=== PATIENT | male | born 1945 | race Caucasian/White ===

== ENCOUNTER 2016-08-15 07:11 | Emergency (ER) | payer MEDICARE, MEDICAID, OTHER ==
[~2016-08-15] VITALS: Ht 190.5 cm; Wt 72.7 kg
[~2016-08-15 07:11] MED LIST: 00186-0370-20 IH; ASPIRIN 81M81 MG/TA2 PO; BETAPACE 80MG80 MG PO; DITROPAN 5MG TAB5 MG PO; ELIQUIS 5MG PO; FISH OIL 500 M1 EAC1 PO; FLOMAX 0.40.4 MG/CAP PO; LIPITOR 40MG TA40 MG PO; LUBRICATING OPH OU; MOBIC15 MG PO; NICODERM C14 MG/PATC TD; NICORETTE2 M1 PO; PRILOSEC 20MG20 MG PO; PROAIR HFA0.09 MG/AC IH; SOTALOL PO; ULTRAM 50MG TAB50 MG PO; VIAGRA100 M1 PO; ZESTRIL 5MG5 MG PO; ZOLOFT 100MG100 MG PO
[2016-08-15 07:14] VITALS: TEMP 98.3
[2016-08-15] MEDS ORDERED: TOPROL XL 25MG25 MG PO (07:53)
[2016-08-15] MEDS ORDERED: COUMADIN 2MG2 MG/TAB PO (07:54)
[2016-08-15] MEDS ORDERED: LIPITOR 40MG TA40 MG PO (07:55)
[2016-08-15] MEDS ORDERED: PROTONIX20 MG PO (07:57)
[2016-08-15 08:12] LABS: MEAN CELL VOLUME 90 fl (80.0-100.0); MEAN CORPUSCULAR HGB CONC 32 g/dl (33.0-37.0); MEAN PLATELET VOLUME 9.9 fl (7.4-10.4); PLATELET COUNT 143 K/mm3 (130-400); RED BLOOD COUNT 2.28 M/mm3 (4.20-5.60); REDCELL DISTRIBUTION WIDTH-CV 14.1 % (11.5-14.5); WHITE BLOOD COUNT 5.4 K/mm3 (4.8-10.8)
[2016-08-15 08:15] LABS: HEMOGLOBIN 6.5 g/dl (13.5-18.0); MEAN CORPUSCULAR HEMOGLOBIN 29 pg (27.0-31.0)
[2016-08-15 08:16] LABS: HEMATOCRIT 20.5 % (42.0-52.0)
[2016-08-15 08:17] LABS: ADD PATHOLOGY DIFF REVIEW NO
[2016-08-15] MEDS ORDERED: NITROSTAT0.4 MG/TAB SL (08:19)
[2016-08-15] MEDS ORDERED: XALATAN EYE DROPS OD (08:20)
[2016-08-15 08:22] LABS: INR 1.2 (0.8-3.0)
[2016-08-15] MEDS ORDERED: 00186-0372-20 IH (08:26)
[2016-08-15] MEDS ORDERED: ROXICODONE 55 MG/TAB PO (08:26)
[2016-08-15 08:27] LABS: ADJUSTED CALCIUM 8.8 mg/dL (8.4-10.2); ALBUMIN 2.7 gm/dL (3.5-5.0); BILIRUBIN,TOTAL 0.6 mg/dL (0.0-1.0); CALCIUM 7.8 mg/dL (8.4-10.2); TOTAL PROTEIN 6.5 gm/dL (6.4-8.2)
[2016-08-15 08:30] LABS: CREATININE, serum 5.4 mg/dL (0.66-1.25)
[2016-08-15 09:06] VITALS: BP 147/82; PULSE 60
[2016-08-15 09:14] LABS: BAND 6 % (0-10); METAMYELOCYTE 1 % (0-0); NEUTROPHILS 84 % (42.0-75.2); TOTAL CELLS COUNTED 100
[2016-08-15 09:16] LABS: ANISOCYTOSIS 1+; HYPOCHROMIA 2+; OVALOCYTES 1+
== END 2016-08-15 09:05 | disposition short-term general hospital (02) ==
LOC: COL.ER 07:11
PROVIDERS: Emergency Medicine
DX: S06.5X0A Traumatic subdural hemorrhage without loss of consciousness, initial encounter (principal); S06.6X0A Traumatic subarachnoid hemorrhage without loss of consciousness, initial encounter; S50.01XA Contusion of right elbow, initial encounter; S50.311A Abrasion of right elbow, initial encounter; D64.9 Anemia, unspecified; W01.198A Fall on same level from slipping, tripping and stumbling with subsequent striking against other object, initial encounter; Y92.129 Unspecified place in nursing home as the place of occurrence of the external cause; Z23 Encounter for immunization; I48.91 Unspecified atrial fibrillation; Z79.01 Long term (current) use of anticoagulants; Z79.82 Long term (current) use of aspirin; I10 Essential (primary) hypertension; J44.9 Chronic obstructive pulmonary disease, unspecified; I71.4 Abdominal aortic aneurysm, without rupture; F17.200 Nicotine dependence, unspecified, uncomplicated; R40.2412 Glasgow coma scale score 13-15, at arrival to emergency department; S00.83XA Contusion of other part of head, initial encounter; S00.81XA Abrasion of other part of head, initial encounter
CPT/HCPCS: J3430

== ENCOUNTER → 2016-08-29 | Outpatient (CLI) | payer MEDICARE, MEDICAID ==
[~2016-08-29] MED LIST changes: +00186-0372-20 IH; +AMOXICILLIN/CLA1 TA1 PO; +CEPHALEXIN500 M1 PO; +COUMADIN 2MG2 MG/TAB PO; +FLAGYL500 MG PO; +IMDUR 60MG60 MG/TAB PO; +ISOSORBIDE MON120 MG PO; +KEPPRA 500MG500 MG PO; +LOPRESSOR 225 MG/TAB PO; +NITROSTAT0.4 MG/TAB SL; +NORCO 325 MG-51 TAB PO; +PROTONIX20 MG PO; +ROXICODONE 55 MG/TAB PO; +SEN-O-TABS8.6 MG PO; +TOPROL XL 25MG25 MG PO; +TYLENOL 325MG325 MG PO; +TYLENOL W/COD1 UDTAB PO; +XALATAN EYE DROPS OD; +ZOFRAN 4MG T4 MG/TAB PO
[2016-08-29 19:29] LABS: BASO % 0.2 % (0.0-2.0); EOS # 0.1 (0.0-0.7); EOS % 1.5 % (0-4.0); GRAN # 4.4 (1.4-6.5); GRAN % 84.1 % (42.2-75.2); LYMPH # 0.4 (1.2-3.4); LYMPH % 8.2 % (20.0-51.0); MEAN CELL VOLUME 88 fl (80.0-100.0); MEAN CORPUSCULAR HGB CONC 32 g/dl (33.0-37.0); MEAN PLATELET VOLUME 11.2 fl (7.4-10.4); MONO # 0.3 (0.1-0.6); MONO % 5.2 % (1.7-9.3); PLATELET COUNT 137 K/mm3 (130-400); RED BLOOD COUNT 2.84 M/mm3 (4.20-5.60); REDCELL DISTRIBUTION WIDTH-CV 13.6 % (11.5-14.5); WHITE BLOOD COUNT 5.2 K/mm3 (4.8-10.8)
[2016-08-29 19:39] LABS: HEMATOCRIT 25.1 % (42.0-52.0); MEAN CORPUSCULAR HEMOGLOBIN 28 pg (27.0-31.0)
[2016-08-29 20:03] LABS: CALCIUM 7.6 mg/dL (8.4-10.2); POTASSIUM 3.4 mmol/L (3.4-5.0)
[2016-08-29 20:07] LABS: CREATININE, serum 6.37 mg/dL (0.66-1.25)
== END ==
LOC: ZCOL.LAB 17:28
PROVIDERS: Internal Medicine
DX: E11.9 Type 2 diabetes mellitus without complications (principal); D72.829 Elevated white blood cell count, unspecified

== ENCOUNTER 2016-08-31 19:15 | Observation (INO) | payer MEDICARE, MEDICAID ==
[~2016-08-31] VITALS: Ht 190.5 cm; Wt 71.0 kg
[2016-08-31] VITALS (59 sets, daily range): BP systolic 152; BP diastolic 84; PULSE 65; TEMP 97.7; O2SAT 95–100
[~2016-08-31 19:15] MED LIST changes: -AMOXICILLIN/CLA1 TA1 PO; -CEPHALEXIN500 M1 PO; -FLAGYL500 MG PO; -IMDUR 60MG60 MG/TAB PO; -ISOSORBIDE MON120 MG PO; -KEPPRA 500MG500 MG PO; -LOPRESSOR 225 MG/TAB PO; -NORCO 325 MG-51 TAB PO; -SEN-O-TABS8.6 MG PO; -TYLENOL 325MG325 MG PO; -TYLENOL W/COD1 UDTAB PO; -ZOFRAN 4MG T4 MG/TAB PO
[2016-08-31] MEDS ORDERED: KEPPRA 500MG500 MG PO (19:55)
[2016-08-31 20:20] LABS: BASO % 0.2 % (0.0-2.0); EOS # 0.1 (0.0-0.7); EOS % 2.7 % (0-4.0); GRAN # 3.4 (1.4-6.5); GRAN % 75.5 % (42.2-75.2); LYMPH # 0.5 (1.2-3.4); LYMPH % 11.8 % (20.0-51.0); MEAN CELL VOLUME 87 fl (80.0-100.0); MEAN CORPUSCULAR HGB CONC 32 g/dl (33.0-37.0); MEAN PLATELET VOLUME 10.6 fl (7.4-10.4); MONO # 0.4 (0.1-0.6); MONO % 8.5 % (1.7-9.3); PLATELET COUNT 138 K/mm3 (130-400); RED BLOOD COUNT 2.96 M/mm3 (4.20-5.60); REDCELL DISTRIBUTION WIDTH-CV 13.8 % (11.5-14.5); WHITE BLOOD COUNT 4.5 K/mm3 (4.8-10.8)
[2016-08-31 20:21] LABS: HEMATOCRIT 25.6 % (42.0-52.0); HEMOGLOBIN 8.3 g/dl (13.5-18.0); MEAN CORPUSCULAR HEMOGLOBIN 28 pg (27.0-31.0)
[2016-08-31 20:27] LABS: PROTHROMBIN TIME 10.9 SECONDS (9.7-12.8)
[2016-08-31 20:29] LABS: PARTIAL THROMBOPLASTIN TIME 33.8 SECONDS (26.0-37.0)
[2016-08-31 20:30] LABS: CALCIUM 8.1 mg/dL (8.4-10.2); CREATININE, serum 2.33 mg/dL (0.66-1.25); POTASSIUM 3.3 mmol/L (3.4-5.0)
[2016-09-01] VITALS (551 sets, daily range): BP systolic 117–152; BP diastolic 58–86; PULSE 49–56; TEMP 98–98.4; O2SAT 92–100
[2016-09-01 06:27] LABS: EOS # 0.1 (0.0-0.7); EOS % 2.8 % (0-4.0); GRAN # 2.4 (1.4-6.5); GRAN % 67.9 % (42.2-75.2); LYMPH # 0.6 (1.2-3.4); LYMPH % 17.5 % (20.0-51.0); MEAN CELL VOLUME 88 fl (80.0-100.0); MEAN CORPUSCULAR HGB CONC 33 g/dl (33.0-37.0); MEAN PLATELET VOLUME 11.1 fl (7.4-10.4); MONO # 0.4 (0.1-0.6); MONO % 10.4 % (1.7-9.3); PLATELET COUNT 118 K/mm3 (130-400); RED BLOOD COUNT 2.62 M/mm3 (4.20-5.60); WHITE BLOOD COUNT 3.6 K/mm3 (4.8-10.8)
[2016-09-01 06:28] LABS: HEMOGLOBIN 7.5 g/dl (13.5-18.0); MEAN CORPUSCULAR HEMOGLOBIN 29 pg (27.0-31.0)
[2016-09-01 06:33] LABS: PH 8 (5-8); SQUAMOUS EPITHELIAL None Seen /hpf; URINE APPEARANCE Clear; URINE BACTERIA Rare /hpf; URINE BILIRUBIN Negative (NEGATIVE); URINE BLOOD 2+ (NEGATIVE); URINE COLOR Yellow; URINE GLUCOSE Negative (NEGATIVE); URINE KETONE Negative (NEGATIVE); URINE RBC 0-2 /hpf; URINE UROBILINOGEN Negative (NEGATIVE)
[2016-09-01 06:36] LABS: ALBUMIN 2.6 gm/dL (3.5-5.0); CALCIUM 7.7 mg/dL (8.4-10.2); CREATININE, serum 3.16 mg/dL (0.66-1.25); POTASSIUM 3.3 mmol/L (3.4-5.0)
[2016-09-01 06:52] LABS: PHOSPHOROUS 3.2 mg/dL (2.5-4.5)
[2016-09-01] MEDS ORDERED: FLOMAX 0.40.4 MG/CAP PO (13:23)
[2016-09-01] MEDS ORDERED: TYLENOL W/COD1 UDTAB PO (14:31)
[2016-09-01] MEDS ORDERED: CEPHALEXIN500 M1 PO (14:51)
== END 2016-09-01 15:47 ==
LOC: COL.ER 19:15 → ICU 22:00
PROVIDERS: Emergency Medicine; Internal Medicine
DX: S06.5X0A Traumatic subdural hemorrhage without loss of consciousness, initial encounter (principal); I25.2 Old myocardial infarction; I25.10 Atherosclerotic heart disease of native coronary artery without angina pectoris; J44.9 Chronic obstructive pulmonary disease, unspecified; C34.90 Malignant neoplasm of unspecified part of unspecified bronchus or lung; N18.6 End stage renal disease; E78.5 Hyperlipidemia, unspecified; J43.9 Emphysema, unspecified; Z99.2 Dependence on renal dialysis; Z95.5 Presence of coronary angioplasty implant and graft; Z87.891 Personal history of nicotine dependence; Z86.718 Personal history of other venous thrombosis and embolism; Z83.49 Family history of other endocrine, nutritional and metabolic diseases
CPT/HCPCS: G0378; J0696

== ENCOUNTER 2016-09-04 10:42 | Inpatient (IN) | payer MEDICARE, MEDICAID ==
[~2016-09-04] VITALS: Ht 193 cm; Wt 72.7 kg
[~2016-09-04 10:42] MED LIST changes: +CEPHALEXIN500 M1 PO; +KEPPRA 500MG500 MG PO; +TYLENOL W/COD1 UDTAB PO
[2016-09-04 12:00] LABS: BASO % 0.3 % (0.0-2.0); EOS # 0.1 (0.0-0.7); EOS % 1.9 % (0-4.0); GRAN # 2.9 (1.4-6.5); LYMPH # 0.3 (1.2-3.4); LYMPH % 9.4 % (20.0-51.0); MEAN CELL VOLUME 88 fl (80.0-100.0); MEAN CORPUSCULAR HGB CONC 32 g/dl (33.0-37.0); MEAN PLATELET VOLUME 11.1 fl (7.4-10.4); MONO # 0.2 (0.1-0.6); MONO % 6.7 % (1.7-9.3); PLATELET COUNT 112 K/mm3 (130-400); REDCELL DISTRIBUTION WIDTH-CV 13.9 % (11.5-14.5); WHITE BLOOD COUNT 3.6 K/mm3 (4.8-10.8)
[2016-09-04 12:02] LABS: ADJUSTED CALCIUM 8.7 mg/dL (8.4-10.2); ALBUMIN 2.6 gm/dL (3.5-5.0); BILIRUBIN,TOTAL 0.5 mg/dL (0.0-1.0); CALCIUM 7.6 mg/dL (8.4-10.2); MAGNESIUM 1.4 mg/dL (1.6-2.3); PHOSPHOROUS 3.5 mg/dL (2.5-4.5); POTASSIUM 3.4 mmol/L (3.4-5.0); TOTAL PROTEIN 6.4 gm/dL (6.4-8.2)
[2016-09-04 12:04] LABS: HEMATOCRIT 22.1 % (42.0-52.0); HEMOGLOBIN 7.1 g/dl (13.5-18.0); MEAN CORPUSCULAR HEMOGLOBIN 28 pg (27.0-31.0)
[2016-09-04 12:13] LABS: CREATININE, serum 4.46 mg/dL (0.66-1.25)
[2016-09-04 12:16] LABS: INR 1.1 (0.8-3.0); PROTHROMBIN TIME 11.9 SECONDS (9.7-12.8)
[2016-09-04 12:26] LABS: TROPONIN-I 0.035 ng/mL (0.000-0.034)
[2016-09-04] MEDS ORDERED: SEN-O-TABS8.6 MG PO (13:03)
[2016-09-04] MEDS ORDERED: FISH OIL 500 M1 EAC1 PO (13:10)
[2016-09-04] MEDS ORDERED: TYLENOL 325MG325 MG PO (13:19)
[2016-09-04 17:30] VITALS: BP 168/79; PULSE 49; TEMP 97.9
[2016-09-04 21:19] VITALS: BP 150/62; PULSE 47; TEMP 98
[2016-09-04 23:43] VITALS: BP 132/58; PULSE 51; TEMP 98.1
[2016-09-05] VITALS (11 sets, daily range): BP systolic 99–166; BP diastolic 48–74; PULSE 50–72; TEMP 97.3–98.4
[2016-09-05 06:54] LABS: TROPONIN-I 0.038 ng/mL (0.000-0.034)
[2016-09-05 12:26] LABS: MEAN CELL VOLUME 88 fl (80.0-100.0); MEAN CORPUSCULAR HGB CONC 32 g/dl (33.0-37.0); MEAN PLATELET VOLUME 10.9 fl (7.4-10.4); PLATELET COUNT 154 K/mm3 (130-400); RED BLOOD COUNT 2.56 M/mm3 (4.20-5.60); REDCELL DISTRIBUTION WIDTH-CV 13.9 % (11.5-14.5); WHITE BLOOD COUNT 4.1 K/mm3 (4.8-10.8)
[2016-09-05 12:28] LABS: HEMATOCRIT 22.6 % (42.0-52.0); HEMOGLOBIN 7.2 g/dl (13.5-18.0); MEAN CORPUSCULAR HEMOGLOBIN 28 pg (27.0-31.0)
[2016-09-05 12:33] LABS: ALBUMIN 2.5 gm/dL (3.5-5.0); CALCIUM 7.8 mg/dL (8.4-10.2); CREATININE, serum 3.3 mg/dL (0.66-1.25); PHOSPHOROUS 3.2 mg/dL (2.5-4.5); POTASSIUM 3.6 mmol/L (3.4-5.0)
[2016-09-06] VITALS (14 sets, daily range): BP systolic 126–165; BP diastolic 46–87; PULSE 48–99; TEMP 97.7–98.3
[2016-09-06 06:36] LABS: MEAN CELL VOLUME 88 fl (80.0-100.0); MEAN CORPUSCULAR HGB CONC 32 g/dl (33.0-37.0); MEAN PLATELET VOLUME 9.5 fl (7.4-10.4); PLATELET COUNT 113 K/mm3 (130-400); RED BLOOD COUNT 2.43 M/mm3 (4.20-5.60); WHITE BLOOD COUNT 4.1 K/mm3 (4.8-10.8)
[2016-09-06 06:48] LABS: HEMATOCRIT 21.3 % (42.0-52.0); HEMOGLOBIN 6.8 g/dl (13.5-18.0); MEAN CORPUSCULAR HEMOGLOBIN 28 pg (27.0-31.0)
[2016-09-06 07:02] LABS: ALBUMIN 2.5 gm/dL (3.5-5.0); CALCIUM 7.6 mg/dL (8.4-10.2); PHOSPHOROUS 3.9 mg/dL (2.5-4.5); POTASSIUM 3.5 mmol/L (3.4-5.0)
[2016-09-06 07:06] LABS: CREATININE, serum 4.2 mg/dL (0.66-1.25)
[2016-09-06 12:19] LABS: RETIC % 0.9 % (0.5-3.52)
[2016-09-07 00:03] VITALS: BP 143/72; PULSE 47; TEMP 98.2
[2016-09-07 03:32] VITALS: BP 150/52; PULSE 47; TEMP 97.9
[2016-09-07 06:36] LABS: MEAN CELL VOLUME 87 fl (80.0-100.0); MEAN CORPUSCULAR HGB CONC 33 g/dl (33.0-37.0); PLATELET COUNT 123 K/mm3 (130-400); RED BLOOD COUNT 3.26 M/mm3 (4.20-5.60); WHITE BLOOD COUNT 5.1 K/mm3 (4.8-10.8)
[2016-09-07 06:46] LABS: ALBUMIN 2.7 gm/dL (3.5-5.0); CALCIUM 7.9 mg/dL (8.4-10.2); CREATININE, serum 3.24 mg/dL (0.66-1.25); PHOSPHOROUS 3.7 mg/dL (2.5-4.5); POTASSIUM 3.3 mmol/L (3.4-5.0)
[2016-09-07 06:50] LABS: HEMATOCRIT 28.5 % (42.0-52.0); HEMOGLOBIN 9.3 g/dl (13.5-18.0); MEAN CORPUSCULAR HEMOGLOBIN 29 pg (27.0-31.0)
[2016-09-07 08:19] VITALS: BP 125/62; PULSE 50; TEMP 98.4
[2016-09-07 11:08] VITALS: BP 148/73; PULSE 51
[2016-09-07] MEDS ORDERED: IMDUR 60MG60 MG/TAB PO (13:04)
== END 2016-09-07 14:00 | disposition home or self-care (01) | DRG 302 ==
LOC: COL.ER 10:42 → MEDICAL 13:25
PROVIDERS: Emergency Medicine; Internal Medicine Nephrology
PROC: 5A1D60Z (ICD-10-PCS; principal; 2016-09-04)
DX: I25.110 Atherosclerotic heart disease of native coronary artery with unstable angina pectoris (principal); N18.6 End stage renal disease; E44.0 Moderate protein-calorie malnutrition; Z68.1 Body mass index [BMI] 19.9 or less, adult; I13.2 Hypertensive heart and chronic kidney disease with heart failure and with stage 5 chronic kidney disease, or end stage renal disease; D61.818 Other pancytopenia; Z99.2 Dependence on renal dialysis; J44.9 Chronic obstructive pulmonary disease, unspecified; Z95.5 Presence of coronary angioplasty implant and graft; Z95.820 Peripheral vascular angioplasty status with implants and grafts; I34.0 Nonrheumatic mitral (valve) insufficiency; E83.42 Hypomagnesemia; D63.1 Anemia in chronic kidney disease; F17.210 Nicotine dependence, cigarettes, uncomplicated
CPT/HCPCS: A9502; G0378; J0696; J0882; J2785; J2916; J7030; P9016

== ENCOUNTER 2016-09-15 22:58 | Emergency (ER) | payer MEDICARE, MEDICAID ==
[~2016-09-15] VITALS: Ht 188 cm; Wt 63.6 kg
[~2016-09-15 22:58] MED LIST changes: +IMDUR 60MG60 MG/TAB PO; +SEN-O-TABS8.6 MG PO; +TYLENOL 325MG325 MG PO
[2016-09-15 23:03] VITALS: TEMP 97.7
[2016-09-16 00:24] VITALS: BP 154/87; PULSE 83
== END 2016-09-16 00:24 | disposition home or self-care (01) ==
LOC: COL.ER 22:58
DX: S40.812A Abrasion of left upper arm, initial encounter (principal); S51.012A Laceration without foreign body of left elbow, initial encounter; S80.812A Abrasion, left lower leg, initial encounter; S70.312A Abrasion, left thigh, initial encounter; W01.10XA Fall on same level from slipping, tripping and stumbling with subsequent striking against unspecified object, initial encounter; Y92.828 Other wilderness area as the place of occurrence of the external cause; S06.5X0D Traumatic subdural hemorrhage without loss of consciousness, subsequent encounter; X58.XXXD Exposure to other specified factors, subsequent encounter; I10 Essential (primary) hypertension; E78.5 Hyperlipidemia, unspecified
CPT/HCPCS: J3010

== ENCOUNTER 2016-09-16 12:53 | Inpatient (IN) | payer MEDICARE, MEDICAID ==
[~2016-09-16] VITALS: Ht 190.5 cm; Wt 68.2 kg
[2016-09-16 13:20] LABS: BASO % 0.3 % (0.0-2.0); EOS # 0.1 (0.0-0.7); EOS % 1.4 % (0-4.0); GRAN # 2.6 (1.4-6.5); LYMPH # 0.5 (1.2-3.4); LYMPH % 13.6 % (20.0-51.0); MEAN CELL VOLUME 88 fl (80.0-100.0); MEAN CORPUSCULAR HGB CONC 32 g/dl (33.0-37.0); MEAN PLATELET VOLUME 9.6 fl (7.4-10.4); MONO # 0.4 (0.1-0.6); MONO % 10.1 % (1.7-9.3); PLATELET COUNT 93 K/mm3 (130-400); RED BLOOD COUNT 3.53 M/mm3 (4.20-5.60); REDCELL DISTRIBUTION WIDTH-CV 14.7 % (11.5-14.5); WHITE BLOOD COUNT 3.5 K/mm3 (4.8-10.8)
[2016-09-16 13:21] LABS: HEMATOCRIT 30.9 % (42.0-52.0); HEMOGLOBIN 9.9 g/dl (13.5-18.0); MEAN CORPUSCULAR HEMOGLOBIN 28 pg (27.0-31.0)
[2016-09-16 13:25] LABS: PROTHROMBIN TIME 11.6 SECONDS (9.7-12.8)
[2016-09-16 13:28] LABS: PARTIAL THROMBOPLASTIN TIME 31.3 SECONDS (26.0-37.0)
[2016-09-16 13:30] LABS: ADJUSTED CALCIUM 8.8 mg/dL (8.4-10.2); ALBUMIN 3.1 gm/dL (3.5-5.0); BILIRUBIN,TOTAL 0.7 mg/dL (0.0-1.0); CALCIUM 8.1 mg/dL (8.4-10.2); POTASSIUM 3.6 mmol/L (3.4-5.0); TOTAL PROTEIN 7.3 gm/dL (6.4-8.2)
[2016-09-16 13:44] LABS: CREATININE, serum 4.45 mg/dL (0.66-1.25)
[2016-09-16 13:45] LABS: TROPONIN-I 0.062 ng/mL (0.000-0.034)
[2016-09-16 17:02] VITALS: BP 155/98; PULSE 73; TEMP 98.5
[2016-09-16 23:10] VITALS: BP 153/72; PULSE 68; TEMP 97.9
[2016-09-17 04:35] VITALS: BP 149/83; PULSE 77; TEMP 98.1
[2016-09-17 07:27] LABS: BASO % 0.3 % (0.0-2.0); EOS # 0.1 (0.0-0.7); GRAN # 2.2 (1.4-6.5); GRAN % 66.6 % (42.2-75.2); HEMATOCRIT 28.4 % (42.0-52.0); HEMOGLOBIN 9.3 g/dl (13.5-18.0); LYMPH # 0.6 (1.2-3.4); LYMPH % 17.6 % (20.0-51.0); MEAN CELL VOLUME 87 fl (80.0-100.0); MEAN CORPUSCULAR HEMOGLOBIN 29 pg (27.0-31.0); MEAN CORPUSCULAR HGB CONC 33 g/dl (33.0-37.0); MEAN PLATELET VOLUME 11.3 fl (7.4-10.4); MONO # 0.4 (0.1-0.6); MONO % 11.3 % (1.7-9.3); PLATELET COUNT 100 K/mm3 (130-400); RED BLOOD COUNT 3.25 M/mm3 (4.20-5.60); REDCELL DISTRIBUTION WIDTH-CV 14.6 % (11.5-14.5); WHITE BLOOD COUNT 3.4 K/mm3 (4.8-10.8)
[2016-09-17 07:41] LABS: ALBUMIN 2.9 gm/dL (3.5-5.0); CREATININE, serum 2.97 mg/dL (0.66-1.25); PHOSPHOROUS 3.6 mg/dL (2.5-4.5); POTASSIUM 3.6 mmol/L (3.4-5.0)
[2016-09-17 08:01] VITALS: BP 131/61; PULSE 68; TEMP 98.1
[2016-09-17 11:08] VITALS: BP 129/70; PULSE 78; TEMP 98.5
[2016-09-17 16:57] VITALS: BP 102/60; PULSE 61; TEMP 98.3
[2016-09-17 20:19] VITALS: BP 140/79; PULSE 57; TEMP 97.9
[2016-09-17 23:27] VITALS: BP 127/68; PULSE 56; TEMP 97.5
[2016-09-18 03:44] VITALS: BP 139/64; PULSE 58; TEMP 97.7
[2016-09-18 07:55] VITALS: BP 117/50; PULSE 60; TEMP 98.4
[2016-09-18 11:45] LABS: HEPARIN INDUCED ANTIBODY Negative (Negative); HEPARIN INDUCED OD 0.278 (())
[2016-09-18 13:00] VITALS: BP 119/68; PULSE 55; TEMP 97.9
[2016-09-18] MEDS ORDERED: TOPROL XL 25MG25 MG PO (13:42)
[2016-09-18] MEDS ORDERED: ISOSORBIDE MON120 MG PO (13:43)
[2016-09-19 21:09] LABS: KAPPA FREE LIGHT CHAIN-SERUM 46.5 mg/dL (())
[2016-09-20 14:03] LABS: ALBUMIN FRACTION 2.6 g/dL (2.6-4.5); ALBUMIN PERCENTAGE 41.1 % (48.7-61.8); ALPHA 1 FRACTION 0.4 g/dL (0.3-0.5); ALPHA 1 PERCENTAGE 6.8 % (3.4-8.3); ALPHA 2 FRACTION 0.8 g/dL (0.6-1.2); ALPHA 2 PERCENTAGE 12.5 % (8.4-17.5); BETA 1 FRACTION 0.3 g/dL (0.4-0.6); BETA 1 PERCENTAGE 4.9 % (5.4-8.9); BETA 2 FRACTION 0.3 g/dL (0.2-0.5); BETA 2 PERCENTAGE 4.6 % (3.8-7.7); GAMMA FRACTION 1.9 g/dL (0.4-1.7); GAMMA PERCENTAGE 30.1 % (8.1-23.0); SERUM PROTEIN TOTAL 6.4 g/dL (6.0-7.6)
== END 2016-09-18 16:19 | disposition home or self-care (01) | DRG 302 ==
LOC: COL.ER 12:53 → MEDICAL 16:03
PROVIDERS: Emergency Medicine; Internal Medicine Nephrology
PROC: 5A1D00Z (ICD-10-PCS; principal; 2016-09-16)
DX: I25.119 Atherosclerotic heart disease of native coronary artery with unspecified angina pectoris (principal); E43 Unspecified severe protein-calorie malnutrition; N18.6 End stage renal disease; I12.0 Hypertensive chronic kidney disease with stage 5 chronic kidney disease or end stage renal disease; R07.89 Other chest pain; M79.652 Pain in left thigh; J44.9 Chronic obstructive pulmonary disease, unspecified; Z87.891 Personal history of nicotine dependence; W01.0XXA Fall on same level from slipping, tripping and stumbling without subsequent striking against object, initial encounter; Z99.2 Dependence on renal dialysis
CPT/HCPCS: G0365; J0882; J2916; J3010; J7050

== ENCOUNTER 2016-10-01 11:20 | Emergency (ER) | payer MEDICARE, MEDICAID ==
[~2016-10-01] VITALS: Ht 190.5 cm; Wt 69.8 kg
[~2016-10-01 11:20] MED LIST changes: +ISOSORBIDE MON120 MG PO
[2016-10-01 11:24] VITALS: TEMP 97.4
[2016-10-01 12:06] LABS: BASO % 0.2 % (0.0-2.0); EOS # 0.1 (0.0-0.7); EOS % 1.2 % (0-4.0); GRAN # 3.5 (1.4-6.5); GRAN % 81.1 % (42.2-75.2); LYMPH # 0.5 (1.2-3.4); LYMPH % 11.2 % (20.0-51.0); MEAN CELL VOLUME 89 fl (80.0-100.0); MEAN CORPUSCULAR HGB CONC 32 g/dl (33.0-37.0); MEAN PLATELET VOLUME 11.4 fl (7.4-10.4); MONO # 0.2 (0.1-0.6); MONO % 5.6 % (1.7-9.3); PLATELET COUNT 146 K/mm3 (130-400); RED BLOOD COUNT 3.59 M/mm3 (4.20-5.60); REDCELL DISTRIBUTION WIDTH-CV 15.9 % (11.5-14.5); WHITE BLOOD COUNT 4.3 K/mm3 (4.8-10.8)
[2016-10-01 12:09] LABS: HEMATOCRIT 32.1 % (42.0-52.0); HEMOGLOBIN 10.1 g/dl (13.5-18.0); MEAN CORPUSCULAR HEMOGLOBIN 28 pg (27.0-31.0)
[2016-10-01 12:11] LABS: PROTHROMBIN TIME 11.4 SECONDS (9.7-12.8)
[2016-10-01 12:13] LABS: ADJUSTED CALCIUM 9.1 mg/dL (8.4-10.2); ALBUMIN 3.3 gm/dL (3.5-5.0); BILIRUBIN,TOTAL 0.7 mg/dL (0.0-1.0); CALCIUM 8.5 mg/dL (8.4-10.2); CREATININE, serum 2.83 mg/dL (0.66-1.25); POTASSIUM 3.6 mmol/L (3.4-5.0); TOTAL PROTEIN 7.5 gm/dL (6.4-8.2)
[2016-10-01 12:14] LABS: PARTIAL THROMBOPLASTIN TIME 32.3 SECONDS (26.0-37.0)
[2016-10-01 12:51] LABS: PH 8 (5-8); SQUAMOUS EPITHELIAL 0-2 /hpf; URINE APPEARANCE Hazy; URINE BACTERIA None Seen /hpf; URINE BILIRUBIN Negative (NEGATIVE); URINE BLOOD 2+ (NEGATIVE); URINE COLOR Yellow; URINE GLUCOSE 2+ (NEGATIVE); URINE KETONE Negative (NEGATIVE); URINE RBC 20-50 /hpf; URINE UROBILINOGEN Negative (NEGATIVE); URINE WBC 0-2 /hpf
[2016-10-01] MEDS ORDERED: AMOXICILLIN/CLA1 TA1 PO (14:20)
[2016-10-01] MEDS ORDERED: FLAGYL500 MG PO (14:20)
[2016-10-01 14:39] VITALS: BP 133/74; PULSE 63
== END 2016-10-01 14:40 | disposition home or self-care (01) ==
LOC: COL.ER 11:20
PROVIDERS: Emergency Medicine
DX: R19.7 Diarrhea, unspecified (principal); K57.92 Diverticulitis of intestine, part unspecified, without perforation or abscess without bleeding; I25.2 Old myocardial infarction; I25.10 Atherosclerotic heart disease of native coronary artery without angina pectoris; N18.6 End stage renal disease; Z99.2 Dependence on renal dialysis; Z86.79 Personal history of other diseases of the circulatory system
CPT/HCPCS: J7050

== ENCOUNTER → 2016-10-04 | Outpatient (CLI) | payer MEDICARE, MEDICAID ==
[~2016-10-04] MED LIST changes: +AMOXICILLIN/CLA1 TA1 PO; +FLAGYL500 MG PO; +LOPRESSOR 225 MG/TAB PO; +NORCO 325 MG-51 TAB PO; +ZOFRAN 4MG T4 MG/TAB PO
== END ==
LOC: ZCOL.LAB 22:54
DX: R19.7 Diarrhea, unspecified (principal)

== ENCOUNTER 2016-10-13 18:19 | Inpatient (IN) | payer MEDICARE, MEDICAID ==
[~2016-10-13] VITALS: Ht 190.5 cm; Wt 72.1 kg
[~2016-10-13 18:19] MED LIST changes: -LOPRESSOR 225 MG/TAB PO; -NORCO 325 MG-51 TAB PO; -ZOFRAN 4MG T4 MG/TAB PO
[2016-10-13 19:08] LABS: EOS # 0.1 (0.0-0.7); EOS % 1.2 % (0-4.0); GRAN # 3.1 (1.4-6.5); GRAN % 72.5 % (42.2-75.2); LYMPH # 0.8 (1.2-3.4); LYMPH % 17.8 % (20.0-51.0); MEAN CELL VOLUME 91 fl (80.0-100.0); MEAN CORPUSCULAR HGB CONC 32 g/dl (33.0-37.0); MEAN PLATELET VOLUME 10.9 fl (7.4-10.4); MONO # 0.3 (0.1-0.6); MONO % 7.3 % (1.7-9.3); PLATELET COUNT 118 K/mm3 (130-400); RED BLOOD COUNT 3.35 M/mm3 (4.20-5.60); REDCELL DISTRIBUTION WIDTH-CV 17.5 % (11.5-14.5); WHITE BLOOD COUNT 4.3 K/mm3 (4.8-10.8)
[2016-10-13 19:11] LABS: HEMATOCRIT 30.4 % (42.0-52.0); HEMOGLOBIN 9.7 g/dl (13.5-18.0); MEAN CORPUSCULAR HEMOGLOBIN 29 pg (27.0-31.0)
[2016-10-13 19:20] LABS: BILIRUBIN,TOTAL 0.5 mg/dL (0.0-1.0); CALCIUM 8.2 mg/dL (8.4-10.2); CREATININE, serum 3.79 mg/dL (0.66-1.25); MAGNESIUM 1.7 mg/dL (1.6-2.3); PHOSPHOROUS 4.2 mg/dL (2.5-4.5)
[2016-10-13 19:32] LABS: TROPONIN-I 0.014 ng/mL (0.000-0.034)
[2016-10-13 19:51] VITALS: BP 116/77; PULSE 66
[2016-10-13] MEDS ORDERED: ASPIRIN 81M81 MG/TA2 PO (20:35)
[2016-10-14 00:59] VITALS: BP 107/51; PULSE 57; TEMP 98.9
[2016-10-14 06:56] LABS: CREATININE, serum 4.22 mg/dL (0.66-1.25)
[2016-10-14 08:26] VITALS: BP 123/61; PULSE 60; TEMP 98.5
[2016-10-14 09:59] VITALS: BP 134/63; BP 97/42
[2016-10-14 10:01] VITALS: BP 90/51
[2016-10-14] MEDS ORDERED: IMDUR 60MG60 MG/TAB PO (11:09)
== END 2016-10-14 14:15 | disposition home or self-care (01) | DRG 312 ==
LOC: COL.ER 18:19 → MEDICAL 21:55
PROVIDERS: Emergency Medicine; Internal Medicine
DX: I95.2 Hypotension due to drugs (principal); N18.6 End stage renal disease; E86.1 Hypovolemia; K21.9 Gastro-esophageal reflux disease without esophagitis; I25.10 Atherosclerotic heart disease of native coronary artery without angina pectoris; N40.0 Benign prostatic hyperplasia without lower urinary tract symptoms; R56.9 Unspecified convulsions; T46.5X5A Adverse effect of other antihypertensive drugs, initial encounter; F32.9 Major depressive disorder, single episode, unspecified
CPT/HCPCS: J7050

== ENCOUNTER 2016-10-18 08:50 | Day surgery (SDC) | payer MEDICARE, MEDICAID ==
[~2016-10-18] VITALS: Ht 190.5 cm; Wt 70.2 kg
[2016-10-18 09:31] VITALS: BP 115/63; PULSE 60; TEMP 97.3
[2016-10-18 09:44] LABS: CALCIUM 8.1 mg/dL (8.4-10.2); POTASSIUM 4.2 mmol/L (3.4-5.0)
[2016-10-18 09:47] LABS: CREATININE, serum 4.23 mg/dL (0.66-1.25)
[2016-10-18] MEDS ORDERED: 00186-0370-20 IH (10:04)
[2016-10-18] MEDS ORDERED: LOPRESSOR 225 MG/TAB PO ×2 (10:08→10:09)
[2016-10-18 13:06] VITALS: BP 120/74; PULSE 54
[2016-10-18 13:21] VITALS: BP 127/71; PULSE 53
[2016-10-18 13:36] VITALS: BP 102/75; PULSE 51
[2016-10-18] MEDS ORDERED: NORCO 325 MG-51 TAB PO (13:37)
[2016-10-18 13:51] VITALS: BP 113/61; PULSE 55
== END 2016-10-18 15:08 | disposition home or self-care (01) ==
LOC: SDCO 08:50
PROVIDERS: Surgery
DX: N18.6 End stage renal disease (principal); C34.31 Malignant neoplasm of lower lobe, right bronchus or lung; I13.2 Hypertensive heart and chronic kidney disease with heart failure and with stage 5 chronic kidney disease, or end stage renal disease; I25.10 Atherosclerotic heart disease of native coronary artery without angina pectoris; I50.9 Heart failure, unspecified; F32.9 Major depressive disorder, single episode, unspecified; D64.9 Anemia, unspecified; K21.9 Gastro-esophageal reflux disease without esophagitis; M19.90 Unspecified osteoarthritis, unspecified site; J44.9 Chronic obstructive pulmonary disease, unspecified; I48.0 Paroxysmal atrial fibrillation; I73.9 Peripheral vascular disease, unspecified; G43.909 Migraine, unspecified, not intractable, without status migrainosus; Z99.2 Dependence on renal dialysis; Z95.5 Presence of coronary angioplasty implant and graft; Z86.73 Personal history of transient ischemic attack (TIA), and cerebral infarction without residual deficits; Z87.891 Personal history of nicotine dependence; Z90.49 Acquired absence of other specified parts of digestive tract; Z82.49 Family history of ischemic heart disease and other diseases of the circulatory system
CPT/HCPCS: J0690; J1644; J2250; J2765; J2795; J7030

== ENCOUNTER 2016-10-18 21:33 | Observation (INO) | payer MEDICARE, MEDICAID ==
[~2016-10-18] VITALS: Ht 190.5 cm; Wt 71.7 kg
[~2016-10-18 21:33] MED LIST changes: +LOPRESSOR 225 MG/TAB PO; +NORCO 325 MG-51 TAB PO
[2016-10-18 22:01] LABS: BASO % 0.3 % (0.0-2.0); EOS # 0.1 (0.0-0.7); EOS % 2.1 % (0-4.0); GRAN # 2.6 (1.4-6.5); GRAN % 68.3 % (42.2-75.2); HEMATOCRIT 30.3 % (42.0-52.0); HEMOGLOBIN 9.7 g/dl (13.5-18.0); LYMPH # 0.8 (1.2-3.4); LYMPH % 20.2 % (20.0-51.0); MEAN CELL VOLUME 90 fl (80.0-100.0); MEAN CORPUSCULAR HEMOGLOBIN 29 pg (27.0-31.0); MEAN CORPUSCULAR HGB CONC 32 g/dl (33.0-37.0); MEAN PLATELET VOLUME 10.7 fl (7.4-10.4); MONO # 0.3 (0.1-0.6); MONO % 8.3 % (1.7-9.3); PLATELET COUNT 99 K/mm3 (130-400); RED BLOOD COUNT 3.35 M/mm3 (4.20-5.60); REDCELL DISTRIBUTION WIDTH-CV 17.4 % (11.5-14.5); WHITE BLOOD COUNT 3.9 K/mm3 (4.8-10.8)
[2016-10-18 22:10] LABS: ADJUSTED CALCIUM 8.4 mg/dL (8.4-10.2); ALBUMIN 3.1 gm/dL (3.5-5.0); BILIRUBIN,TOTAL 0.4 mg/dL (0.0-1.0); CALCIUM 7.7 mg/dL (8.4-10.2); CREATININE, serum 4.61 mg/dL (0.66-1.25); POTASSIUM 4.2 mmol/L (3.4-5.0)
[2016-10-18 22:21] LABS: PROTHROMBIN TIME 11.1 SECONDS (9.7-12.8)
[2016-10-18 22:26] VITALS: BP 145/76; PULSE 57
[2016-10-18 23:57] VITALS: BP 175/74; BP 186/74; PULSE 59; TEMP 97.4
[2016-10-19 04:15] VITALS: BP 142/72; PULSE 59; TEMP 97.9
[2016-10-19 07:58] VITALS: BP 133/67; PULSE 50; TEMP 97.4
== END 2016-10-19 11:40 | disposition home or self-care (01) ==
LOC: COL.ER 21:33 → MEDICAL 22:41
PROVIDERS: Emergency Medicine
DX: T82.838A Hemorrhage due to vascular prosthetic devices, implants and grafts, initial encounter (principal); N18.6 End stage renal disease; I10 Essential (primary) hypertension; E78.5 Hyperlipidemia, unspecified; I73.9 Peripheral vascular disease, unspecified; J44.9 Chronic obstructive pulmonary disease, unspecified; F32.9 Major depressive disorder, single episode, unspecified; Z99.2 Dependence on renal dialysis; Z87.891 Personal history of nicotine dependence
CPT/HCPCS: G0378

== ENCOUNTER 2016-10-30 06:47 | Inpatient (IN) | payer MEDICARE, OTHER, MEDICAID ==
[~2016-10-30] VITALS: Ht 190.5 cm; Wt 70.3 kg
[2016-10-30 07:22] LABS: BASO % 0.2 % (0.0-2.0); EOS # 0.1 (0.0-0.7); EOS % 1.1 % (0-4.0); GRAN # 4.3 (1.4-6.5); GRAN % 79.7 % (42.2-75.2); LYMPH # 0.6 (1.2-3.4); LYMPH % 10.6 % (20.0-51.0); MEAN CELL VOLUME 90 fl (80.0-100.0); MEAN CORPUSCULAR HGB CONC 32 g/dl (33.0-37.0); MEAN PLATELET VOLUME 10.1 fl (7.4-10.4); MONO # 0.4 (0.1-0.6); MONO % 7.7 % (1.7-9.3); PLATELET COUNT 99 K/mm3 (130-400); RED BLOOD COUNT 3.64 M/mm3 (4.20-5.60); WHITE BLOOD COUNT 5.5 K/mm3 (4.8-10.8)
[2016-10-30 07:24] LABS: HEMATOCRIT 32.8 % (42.0-52.0); HEMOGLOBIN 10.6 g/dl (13.5-18.0); MEAN CORPUSCULAR HEMOGLOBIN 29 pg (27.0-31.0)
[2016-10-30 07:38] LABS: CALCIUM 8.4 mg/dL (8.4-10.2); POTASSIUM 4.2 mmol/L (3.4-5.0)
[2016-10-30 07:49] LABS: CREATININE, serum 5.17 mg/dL (0.66-1.25)
[2016-10-30 09:02] LABS: COLLECTION METHOD CLEAN CATCH
[2016-10-30 09:10] LABS: MUCOUS Present /lpf; PH 8 (5-8); SQUAMOUS EPITHELIAL 0-2 /hpf; URINE APPEARANCE Clear; URINE BACTERIA Rare /hpf; URINE BILIRUBIN Negative (NEGATIVE); URINE BLOOD 3+ (NEGATIVE); URINE COLOR Yellow; URINE GLUCOSE 2+ (NEGATIVE); URINE KETONE Negative (NEGATIVE); URINE LEUKOCYTE ESTERASE Negative (NEGATIVE); URINE PROTEIN(semi-quant) 3+ (NEGATIVE); URINE RBC >50 /hpf; URINE UROBILINOGEN Negative (NEGATIVE)
[2016-10-30 11:48] VITALS: BP 130/63; PULSE 59; TEMP 98.1
[2016-10-30 16:09] VITALS: BP 119/67; PULSE 56; TEMP 98
[2016-10-30 18:03] LABS: ALBUMIN 3.3 gm/dL (3.5-5.0); BILIRUBIN,TOTAL 0.7 mg/dL (0.0-1.0); TOTAL PROTEIN 7.2 gm/dL (6.4-8.2)
[2016-10-30 19:52] VITALS: BP 139/63; PULSE 62; TEMP 98.7
[2016-10-31 00:52] VITALS: BP 132/52; PULSE 59; TEMP 98.4
[2016-10-31 04:00] VITALS: BP 129/68; PULSE 67; TEMP 98.5
[2016-10-31 06:36] LABS: COLLECTION METHOD CLEAN CATCH
[2016-10-31 06:56] LABS: PH 8 (5-8); SQUAMOUS EPITHELIAL 0-2 /hpf; URINE APPEARANCE Clear; URINE BACTERIA None Seen /hpf; URINE BILIRUBIN Negative (NEGATIVE); URINE BLOOD 3+ (NEGATIVE); URINE COLOR Yellow; URINE GLUCOSE 1+ (NEGATIVE); URINE KETONE Negative (NEGATIVE); URINE LEUKOCYTE ESTERASE Negative (NEGATIVE); URINE PROTEIN(semi-quant) 3+ (NEGATIVE); URINE RBC >50 /hpf; URINE UROBILINOGEN Negative (NEGATIVE)
[2016-10-31 07:43] VITALS: BP 158/70; PULSE 62; TEMP 98.7
[2016-10-31 07:46] LABS: ALBUMIN 3.4 gm/dL (3.5-5.0); CALCIUM 8.6 mg/dL (8.4-10.2); PHOSPHOROUS 7.1 mg/dL (2.5-4.5); POTASSIUM 4.4 mmol/L (3.4-5.0)
[2016-10-31 07:54] LABS: CREATININE, serum 6.18 mg/dL (0.66-1.25)
[2016-10-31] MEDS ORDERED: ZOFRAN 4MG T4 MG/TAB PO (12:16)
== END 2016-10-31 14:08 | disposition home or self-care (01) | DRG 391 ==
LOC: COL.ER 06:47 → MEDICAL 10:18
PROVIDERS: Emergency Medicine; Internal Medicine Nephrology
DX: R11.10 Vomiting, unspecified (principal); N18.6 End stage renal disease; C34.90 Malignant neoplasm of unspecified part of unspecified bronchus or lung; E46 Unspecified protein-calorie malnutrition; I12.0 Hypertensive chronic kidney disease with stage 5 chronic kidney disease or end stage renal disease; Z68.1 Body mass index [BMI] 19.9 or less, adult; R07.89 Other chest pain; J44.9 Chronic obstructive pulmonary disease, unspecified; I95.9 Hypotension, unspecified; I25.10 Atherosclerotic heart disease of native coronary artery without angina pectoris; E78.5 Hyperlipidemia, unspecified; I71.4 Abdominal aortic aneurysm, without rupture; Z87.891 Personal history of nicotine dependence; Z95.5 Presence of coronary angioplasty implant and graft; Z99.2 Dependence on renal dialysis
CPT/HCPCS: G0378; J2765; J7040

== ENCOUNTER → 2016-12-12 | Outpatient (CLI) | payer OTHER ==
[~2016-12-12] MED LIST changes: +ZOFRAN 4MG T4 MG/TAB PO
== END ==
LOC: COL.RAD 13:08
DX: G93.6 Cerebral edema (principal); C34.90 Malignant neoplasm of unspecified part of unspecified bronchus or lung

== ENCOUNTER 2017-02-11 18:48 | Inpatient (IN) | payer MEDICARE, OTHER ==
[~2017-02-11] VITALS: Ht 190.5 cm; Wt 79.1 kg
[2017-02-11 19:56] LABS: MEAN CELL VOLUME 98 fl (80.0-100.0); MEAN CORPUSCULAR HGB CONC 33 g/dl (33.0-37.0); MEAN PLATELET VOLUME 10.8 fl (7.4-10.4); PLATELET COUNT 106 K/mm3 (130-400); RED BLOOD COUNT 3.28 M/mm3 (4.20-5.60); REDCELL DISTRIBUTION WIDTH-CV 13.8 % (11.5-14.5)
[2017-02-11 19:58] LABS: HEMOGLOBIN 10.6 g/dl (13.5-18.0); MEAN CORPUSCULAR HEMOGLOBIN 32 pg (27.0-31.0)
[2017-02-11 20:04] LABS: CALCIUM 8.8 mg/dL (8.4-10.2); CREATININE, serum 2.47 mg/dL (0.66-1.25); POTASSIUM 3.8 mmol/L (3.4-5.0)
[2017-02-11 20:05] LABS: PROTHROMBIN TIME 11.2 SECONDS (9.7-12.8)
[2017-02-11 20:20] LABS: BAND 3 % (0-10); HYPOCHROMIA 1+; LYMPHOCYTE 5 % (20.0-51.0); NEUTROPHILS 91 % (42.0-75.2); PLATELET ESTIMATE DECREASED (NORMAL)
[2017-02-11 21:18] VITALS: BP 141/72; PULSE 48; TEMP 97.3
[2017-02-11 21:19] VITALS: BP 141/72; PULSE 48; TEMP 97.3
[2017-02-12] VITALS (11 sets, daily range): BP systolic 106–153; BP diastolic 49–88; PULSE 46–66; TEMP 96.9–98.5
[2017-02-12 07:33] LABS: BASO % 0.1 % (0.0-2.0); GRAN # 8.6 (1.4-6.5); LYMPH # 0.8 (1.2-3.4); LYMPH % 7.9 % (20.0-51.0); MEAN CELL VOLUME 98 fl (80.0-100.0); MEAN CORPUSCULAR HGB CONC 33 g/dl (33.0-37.0); MONO % 9.1 % (1.7-9.3); PLATELET COUNT 106 K/mm3 (130-400); RED BLOOD COUNT 3.02 M/mm3 (4.20-5.60)
[2017-02-12 07:44] LABS: CALCIUM 8.7 mg/dL (8.4-10.2); CREATININE, serum 3.41 mg/dL (0.66-1.25); POTASSIUM 4.6 mmol/L (3.4-5.0)
[2017-02-12 07:47] LABS: PROTHROMBIN TIME 11.8 SECONDS (9.7-12.8)
[2017-02-12 07:53] LABS: HEMATOCRIT 29.5 % (42.0-52.0); HEMOGLOBIN 9.8 g/dl (13.5-18.0); MEAN CORPUSCULAR HEMOGLOBIN 32 pg (27.0-31.0)
[2017-02-13] VITALS: BP 106/55; PULSE 63; TEMP 98.2
[2017-02-13 04:00] VITALS: BP 110/56; PULSE 63; TEMP 98.5
[2017-02-13 07:37] LABS: BASO % 0.1 % (0.0-2.0); EOS % 0.3 % (0-4.0); GRAN # 7.5 (1.4-6.5); GRAN % 80.7 % (42.2-75.2); LYMPH # 0.7 (1.2-3.4); LYMPH % 7.8 % (20.0-51.0); MEAN CELL VOLUME 100 fl (80.0-100.0); MEAN CORPUSCULAR HGB CONC 32 g/dl (33.0-37.0); MEAN PLATELET VOLUME 10.5 fl (7.4-10.4); MONO # 0.9 (0.1-0.6); MONO % 9.8 % (1.7-9.3); PLATELET COUNT 108 K/mm3 (130-400); RED BLOOD COUNT 2.62 M/mm3 (4.20-5.60); REDCELL DISTRIBUTION WIDTH-CV 14.4 % (11.5-14.5)
[2017-02-13 07:40] LABS: HEMATOCRIT 26.1 % (42.0-52.0); HEMOGLOBIN 8.4 g/dl (13.5-18.0); MEAN CORPUSCULAR HEMOGLOBIN 32 pg (27.0-31.0)
[2017-02-13 07:46] LABS: CALCIUM 7.6 mg/dL (8.4-10.2); POTASSIUM 4.1 mmol/L (3.4-5.0)
[2017-02-13 07:56] LABS: CREATININE, serum 4.98 mg/dL (0.66-1.25)
[2017-02-13 12:00] VITALS: BP 97/49; PULSE 88; TEMP 98.6
[2017-02-13 17:39] VITALS: BP 120/55; PULSE 88; TEMP 98.1
[2017-02-13 22:06] VITALS: BP 113/56; PULSE 100; TEMP 98.1
[2017-02-14] VITALS (11 sets, daily range): BP systolic 97–128; BP diastolic 45–61; PULSE 65–92; TEMP 97.4–98.3
[2017-02-14 02:53] LABS: HEMATOCRIT 23.7 % (42.0-52.0); HEMOGLOBIN 7.9 g/dl (13.5-18.0)
[2017-02-14 03:01] LABS: INR 1.2 (0.8-3.0); PROTHROMBIN TIME 13.5 SECONDS (9.7-12.8)
[2017-02-14 07:27] LABS: MEAN CELL VOLUME 99 fl (80.0-100.0); MEAN CORPUSCULAR HGB CONC 32 g/dl (33.0-37.0); MEAN PLATELET VOLUME 10.6 fl (7.4-10.4); PLATELET COUNT 101 K/mm3 (130-400); RED BLOOD COUNT 2.43 M/mm3 (4.20-5.60); REDCELL DISTRIBUTION WIDTH-CV 14.6 % (11.5-14.5)
[2017-02-14 07:32] LABS: CALCIUM 7.9 mg/dL (8.4-10.2); POTASSIUM 4.1 mmol/L (3.4-5.0)
[2017-02-14 07:35] LABS: CREATININE, serum 4.93 mg/dL (0.66-1.25)
[2017-02-14 07:40] LABS: HEMATOCRIT 24.1 % (42.0-52.0); HEMOGLOBIN 7.8 g/dl (13.5-18.0); MEAN CORPUSCULAR HEMOGLOBIN 32 pg (27.0-31.0)
[2017-02-14 08:22] LABS: BAND 18 % (0-10); LYMPHOCYTE 3 % (20.0-51.0); NEUTROPHILS 76 % (42.0-75.2)
[2017-02-14 08:23] LABS: PLATELET ESTIMATE NORMAL (NORMAL)
[2017-02-14 08:24] LABS: HYPOCHROMIA 1+; OVALOCYTES 1+; POIKILOCYTOSIS 1+
[2017-02-14 13:15] LABS: HEMOGLOBIN 7.3 g/dl (13.5-18.0)
[2017-02-15 01:58] VITALS: PULSE 64; TEMP 98.7
[2017-02-15 05:16] VITALS: BP 131/67; PULSE 106; TEMP 98.3
[2017-02-15 07:31] LABS: MEAN CELL VOLUME 96 fl (80.0-100.0); MEAN CORPUSCULAR HGB CONC 33 g/dl (33.0-37.0); MEAN PLATELET VOLUME 10.8 fl (7.4-10.4); PLATELET COUNT 98 K/mm3 (130-400); RED BLOOD COUNT 2.45 M/mm3 (4.20-5.60); REDCELL DISTRIBUTION WIDTH-CV 16.5 % (11.5-14.5)
[2017-02-15 07:42] LABS: CALCIUM 7.6 mg/dL (8.4-10.2)
[2017-02-15 07:45] LABS: HEMATOCRIT 23.6 % (42.0-52.0); HEMOGLOBIN 7.8 g/dl (13.5-18.0); MEAN CORPUSCULAR HEMOGLOBIN 32 pg (27.0-31.0)
[2017-02-15 07:57] LABS: CREATININE, serum 6.33 mg/dL (0.66-1.25)
[2017-02-15 08:09] LABS: POTASSIUM 4.5 mmol/L (3.4-5.0)
[2017-02-15 08:35] LABS: ANISOCYTOSIS 1+; BAND 26 % (0-10); HYPOCHROMIA 2+; LYMPHOCYTE 2 % (20.0-51.0); METAMYELOCYTE 2 % (0-0); NEUTROPHILS 68 % (42.0-75.2); OVALOCYTES 2+; PLATELET ESTIMATE DECREASED (NORMAL)
[2017-02-15 14:00] VITALS: BP 134/54; PULSE 105; TEMP 98.1
[2017-02-15 14:40] LABS: COLLECTION METHOD CLEAN CATCH
[2017-02-15 14:45] LABS: PH 6 (5-8); SQUAMOUS EPITHELIAL 0-2 /hpf; URINE APPEARANCE Clear; URINE BACTERIA None Seen /hpf; URINE BILIRUBIN Negative (NEGATIVE); URINE BLOOD 2+ (NEGATIVE); URINE COLOR Yellow; URINE GLUCOSE 1+ (NEGATIVE); URINE KETONE Negative (NEGATIVE); URINE LEUKOCYTE ESTERASE Negative (NEGATIVE); URINE NITRATE Negative (NEGATIVE); URINE PROTEIN(semi-quant) 2+ (NEGATIVE); URINE RBC 20-50 /hpf; URINE UROBILINOGEN Negative (NEGATIVE)
[2017-02-15 15:22] LABS: HEMATOCRIT 25.4 % (42.0-52.0); HEMOGLOBIN 8.4 g/dl (13.5-18.0)
[2017-02-15 15:32] LABS: IRON,SERUM 13 ug/dL (35-150)
[2017-02-15 15:42] LABS: TOTAL IRON BINDING CAPACITY 162 ug/dL (261-462)
[2017-02-15 18:05] LABS: FERRITIN 1450 ng/mL (18-464)
[2017-02-15 22:52] VITALS: BP 113/62; PULSE 112; TEMP 98.8
[2017-02-16 01:40] VITALS: BP 100/75; PULSE 90
[2017-02-16 06:18] LABS: MEAN CELL VOLUME 97 fl (80.0-100.0); MEAN CORPUSCULAR HGB CONC 32 g/dl (33.0-37.0); MEAN PLATELET VOLUME 10.2 fl (7.4-10.4); PLATELET COUNT 129 K/mm3 (130-400); RED BLOOD COUNT 2.68 M/mm3 (4.20-5.60); REDCELL DISTRIBUTION WIDTH-CV 16.6 % (11.5-14.5)
[2017-02-16 06:24] VITALS: BP 91/56; PULSE 87; TEMP 98.2
[2017-02-16 06:28] LABS: POTASSIUM 5.1 mmol/L (3.4-5.0)
[2017-02-16 06:32] LABS: CREATININE, serum 4.82 mg/dL (0.66-1.25); HEMOGLOBIN 8.4 g/dl (13.5-18.0); MEAN CORPUSCULAR HEMOGLOBIN 31 pg (27.0-31.0)
[2017-02-16 06:59] LABS: TSH w REFLEX 3.59 uIU/mL (0.465-4.680)
[2017-02-16 10:19] VITALS: BP 93/45; PULSE 90; TEMP 98.2
[2017-02-16 14:06] VITALS: BP 87/60; PULSE 68; TEMP 96.7
== END 2017-02-16 18:53 | disposition expired | DRG 469 ==
LOC: COL.ER 18:48 → SURG 20:07
PROVIDERS: Emergency Medicine; Internal Medicine; Orthopaedic Surgery
PROC: 0SRR0J9 Replacement of Right Hip Joint, Femoral Surface with Synthetic Substitute, Cemented, Open Approach (ICD-10-PCS; principal; 2017-02-12 12:30)
PROC: 5A1D70Z Performance of Urinary Filtration, Intermittent, Less than 6 Hours Per Day (ICD-10-PCS; 2017-02-13)
DX: S72.001A Fracture of unspecified part of neck of right femur, initial encounter for closed fracture (principal); N18.6 End stage renal disease; I12.0 Hypertensive chronic kidney disease with stage 5 chronic kidney disease or end stage renal disease; I48.92 Unspecified atrial flutter; C34.31 Malignant neoplasm of lower lobe, right bronchus or lung; Z66 Do not resuscitate; C79.31 Secondary malignant neoplasm of brain; K92.1 Melena; E44.0 Moderate protein-calorie malnutrition; W18.30XA Fall on same level, unspecified, initial encounter; Z99.2 Dependence on renal dialysis; J44.9 Chronic obstructive pulmonary disease, unspecified; I48.91 Unspecified atrial fibrillation; Z87.891 Personal history of nicotine dependence; D63.1 Anemia in chronic kidney disease; R73.9 Hyperglycemia, unspecified
CPT/HCPCS: A9284; C1776; J0690; J1650; J1953; J2250; J2270; J2370; J2405; J2704; J2765; J3010; J7030; P9016